=== PATIENT | female | born 1960 | race Caucasian/White ===

== ENCOUNTER → 2017-05-18 | Outpatient (CLI) | payer OTHER | END | disposition home or self-care (01) | LOC: LAB 09:28 | PROVIDERS: ATTEND Surgery | DX: Z02.1 Encounter for pre-employment examination (principal) | CPT/HCPCS: 86735; 86762; 86765 ==

== ENCOUNTER → 2018-05-18 | Outpatient (CLI) | payer BC ==
[2018-05-18 08:29] LABS: Free T4 (Free Thyroxine) 1.11 ng/dL (0.89-1.76)
[2018-05-18 08:30] LABS: T3 Total 1.28 ng/mL (0.60-1.81)
[2018-05-18 08:31] LABS: Free T3 3.34 pg/mL (2.3-4.2)
== END | disposition home or self-care (01) ==
LOC: LAB 07:22
PROVIDERS: ATTEND Physician Assistant Medical
DX: E79.0 Hyperuricemia without signs of inflammatory arthritis and tophaceous disease (principal); R53.83 Other fatigue; L65.9 Nonscarring hair loss, unspecified
CPT/HCPCS: 36415; 84439; 84443; 84480; 84481